=== PATIENT | female | born 1940 | race Caucasian/White ===

== ENCOUNTER 2019-10-11 16:27 | Emergency (ER) | payer MEDICARE ==
[2019-10-11 17:35] LABS: Basophils # (A) 0.1 k/uL (0-0.2); Basophils % (A) 1 %; Eosinophils # (A) 0.1 k/uL (0-0.7); Eosinophils % (A) 1 %; HCT 38.5 % (34.0-46.0); HGB 12.8 gm/dL (11.4-16.0); Lymphocytes # (A) 2.5 k/uL (1.0-4.8); Lymphocytes % (A) 23 %; MCH 29.6 pg (25.0-35.0); MCHC 33.1 g/dL (31.0-37.0); MCV 89.5 fL (80.0-100.0); Mean Platelet Volume 7.9; Monocytes # (A) 0.8 k/uL (0-1.0); Monocytes % (A) 7 %; Neutrophils % (A) 66 %; Platelet Count 245 k/uL (150-450); RBC 4.31 m/uL (3.80-5.40); RDW 13.6 % (11.5-15.5); WBC 10.6 k/uL (3.8-10.6)
[2019-10-11 17:44] LABS: Albumin 4.2 g/dL (3.5-5.0); Calcium 10.3 mg/dL (8.4-10.2); Potassium 4.7 mmol/L (3.5-5.1); Total Bilirubin 0.5 mg/dL (0.2-1.3); Total Protein 7.5 g/dL (6.3-8.2)
--- NOTE | 2019-10-11 17:45 | XR ---
Right ankle HISTORY: Pain and swelling 3 views of the right ankle There is soft tissue swelling present. Bone mineralization, joint spaces and alignment are maintained . There is a plantar calcaneal spur present. IMPRESSION: No fracture or dislocation. Soft tissue swelling present.
--- NOTE | 2019-10-11 18:03 | ED ---
Extremity Problem HPI - General Chief complaint: Extremity Problem,Nontraumatic Stated complaint: foot pain & swelling Time Seen by Provider: 10/11/19 16:53 Source: patient Mode of arrival: wheelchair Limitations: no limitations - History of Present Illness Initial comments: 79-year-old female patient presents to the emergency department today for evalua tion of right ankle pain, swelling, redness. Patient's that she's had symptoms for the last 3 days. States she is now unable to ambulate without extreme pain and difficulty. Denies any injury to the ankle. States she has had similar symptoms in the past. Last episode was in August states this started in the ankle which resolved and moved to her hip which then resolved and then moved to the left shoulder. Patient states she did see her primary care physician was diagnosed with gout and arthritis subsequently. States she did take Tylenol this morning but has not taking anything else for pain. Denies any fever or chills. Patient denies any recent rash, fever, chills, cough, shortness of breath, chest pain, abdominal pain, nausea, vomiting, diarrhea, constipation, back pain, numbness, tingling, dizziness, weakness, hematuria, dysuria, urinary urgency, urinary frequency, headache, visual changes, or any other complaints. - Related Data Previous Rx's Medication Instructions Recorded Acetaminophen-Codeine 300-30mg 1 tab PO Q6H PRN #12 tablet 10/11/19 [Tylenol #3] predniSONE 50 mg PO DAILY #5 tablet 10/11/19 Allergies Allergy/AdvReac Type Severity Reaction Status Date / Time [place] And Derivatives Allergy Rash/Hives Verified 10/11/19 16:36 [[place]] Review of Systems ROS Statement: Those systems with pertinent positive or pertinent negative responses have been documented in the HPI. ROS Other: All systems not noted in ROS Statement are negative. Past Medical History Past Medical History: Diabetes Mellitus, Hyperlipidemia, Hypertension History of Any Multi-Drug Resistant Organisms: None Reported Past Surgical History: Hysterectomy, Orthopedic Surgery Past Psychological History: No Psychological Hx Reported Smoking Status: Never smoker Past Alcohol Use History: None Reported Past Drug Use History: None Reported General Exam Limitations: no limitations General appearance: alert, in no apparent distress, other (This is a well- developed, well-nourished elderly female patient in no acute distress. Vital signs upon presentation are temperature 98.2F, pulse 98, respirations 18, blood pressure 198/76, pulse ox 97% on room air.) Respiratory exam: Present: normal lung sounds bilaterally. Absent: respiratory distress, wheezes, rales, rhonchi, stridor Cardiovascular Exam: Present: regular rate, normal rhythm, normal heart sounds. Absent: systolic murmur, diastolic murmur, rubs, gallop, clicks Extremities exam: Present: full ROM, tenderness (Tenderness of bilateral malleol us.), normal capillary refill, other (There is right ankle swelling, erythema, etc. down into the foot. No swelling to the toes. Pedal and posttibial pulses 2+ and equal bilaterally. Skin is otherwise pink, warm, dry. Cap refills less than 3 seconds.). Absent: normal inspection, pedal edema, joint swelling, calf tenderness Neurological exam: Present: alert, oriented X3, CN II-XII intact Psychiatric exam: Present: normal affect, normal mood Skin exam: Present: warm, dry, intact, normal color. Absent: rash Course Vital Signs 10/11/19 10/11/19 16:30 20:09 Temperature 98.0 F 98.2 F Pulse Rate 98 93 Respiratory 18 17 Rate Blood Pressure 198/76 160/74 O2 Sat by Pulse 97 98 Oximetry Medical Decision Making - Medical Decision Making 79-year-old female patient presents to the emergency department today for evaluation presents with right ankle swelling, pain, and redness. Physical examination does reveal swelling, pain, erythema over the right ankle. Negative Homans sign. No calf tenderness. Labs reviewed and revealed normal white blood cell count. She did have elevated ESR and uric acid. Patient symptoms are consistent with gout. Given her renal function will not be able start NSAI Ds that we can start a course of steroids. She also was given up her prescription for Tylenol codeine. She'll be instructed to follow-up with orthopedics. We did discuss return parameters including development a fever and worsening pain. She verbalizes understanding and agrees with this plan. - Lab Data Result diagrams: 10/11/19 17:23 10/11/19 17:23 Lab Results 10/11/19 10/11/19 10/11/19 Range/Units 17:23 17:23 17:57 WBC 10.6 (3.8-10.6) k/uL RBC 4.31 (3.80-5.40) m/uL Hgb 12.8 (11.4-16.0) gm/dL Hct 38.5 (34.0-46.0) % MCV 89.5 (80.0-100.0) fL MCH 29.6 (25.0-35.0) pg MCHC 33.1 (31.0-37.0) g/dL RDW 13.6 (11.5-15.5) % Plt Count 245 (150-450) k/uL Neutrophils % 66 % Lymphocytes % 23 % Monocytes % 7 % Eosinophils % 1 % Basophils % 1 % Neutrophils # 7.0 (1.3-7.7) k/uL Lymphocytes # 2.5 (1.0-4.8) k/uL Monocytes # 0.8 (0-1.0) k/uL Eosinophils # 0.1 (0-0.7) k/uL Basophils # 0.1 (0-0.2) k/uL ESR 78 H (0-20) mm/hr Sodium 137 (137-145) mmol/L Potassium 4.7 (3.5-5.1) mmol/L Chloride 102 (98-107) mmol/L Carbon Dioxide 23 (22-30) mmol/L Anion Gap 12 mmol/L BUN 24 H (7-17) mg/dL Creatinine 1.09 H (0.52-1.04) mg/dL Est GFR (CKD-EPI)AfAm 56 (>60 ml/min/1.73 sqM) Est GFR (CKD-EPI)NonAf 49 (>60 ml/min/1.73 sqM) Glucose 176 H (74-99) mg/dL Uric Acid 8.0 H (3.7-7.4) mg/dL Calcium 10.3 H (8.4-10.2) mg/dL Total Bilirubin 0.5 (0.2-1.3) mg/dL AST 24 (14-36) U/L ALT 21 (4-34) U/L Alkaline Phosphatase 83 (38-126) U/L Total Protein 7.5 (6.3-8.2) g/dL Albumin 4.2 (3.5-5.0) g/dL Urine Color Yellow Urine Appearance Clear (Clear) Urine pH 5.5 (5.0-8.0) Ur Specific [place] 1.021 (1.001-1.035) Urine Protein Trace H (Negative) Urine Glucose (UA) Negative (Negative) Urine Ketones Negative (Negative) Urine Blood Moderate (Negative) Urine Nitrite Negative (Negative) Urine Bilirubin Negative (Negative) Urine Urobilinogen <2.0 (<2.0) mg/dL Ur Leukocyte Esterase Negative (Negative) Urine WBC 2 (0-5) /hpf Uric Acid Crystals Moderate H (None) /hpf Hyaline Casts 1 (0-2) /lpf - Radiology Data Radiology results: report reviewed, image reviewed 3 views of the right ankle are obtained. Report reviewed in its entirety. Impression by Dr. Milian shows no fracture or dislocation. Soft tissue swelling present. Disposition Clinical Impression: Gout attack Disposition: HOME SELF-CARE Condition: Good Instructions (If sedation given, give patient instructions): Low Purine Diet (ED), Gout (ED) Additional Instructions: Keep foot elevated. Take medication as directed. Follow up with the developmental specialist for further evaluation. Return for any worsening symptoms, but especially fever or worsening pain. Prescriptions: predniSONE 50 mg PO DAILY #5 tablet Acetaminophen-Codeine 300-30mg [Tylenol #3] 1 tab PO Q6H PRN #12 tablet PRN Reason: Pain Is patient prescribed a controlled substance at d/c from ED?: No Referrals: Moose Stallings DO [Doctor of Osteopathic Medicine] - 1-2 days Time of Disposition: 19:28
[2019-10-11 18:22] LABS: Erythrocyte Sedimentation Rate 78 mm/hr (0-20)
[2019-10-11 19:16] LABS: Color,Urine Yellow
[2019-10-11 19:17] LABS: Appearance,Urine Clear (Clear); Specific Gravity,Urine 1.021 (1.001-1.035)
[2019-10-11 19:18] LABS: PH, Urine 5.5 (5.0-8.0)
[2019-10-11] MEDS ORDERED: methylPREDNISolone SOD SUCCI 125 MG/2 ML VIAL IV STA (19:27)
[2019-10-11 19:33] LABS: Bilirubin,Urine Negative (Negative); Blood,Urine Moderate (Negative); Glucose,Urine (UA) Negative (Negative); Ketones,Urine Negative (Negative); Protein,Urine Trace (Negative)
[2019-10-11 19:34] LABS: Leukocyte Esterase,Urine Negative (Negative); Nitrite,Urine Negative (Negative); Urobilinogen,Urine <2.0 mg/dL (<2.0)
[2019-10-11] MEDS ORDERED: ACET/COD 300 MG/30 MG STARTER PACK 6 TAB BTL PO STA (19:35)
[2019-10-11 20:10] VITALS: BP 160/74; PULSE 93; RESP 17; TEMP 98.2
[2019-10-11 20:36] LABS: Uric Acid Crystals,Urine Moderate /hpf; WBC,Urine 2 /hpf (0-5)
[2019-10-11 20:37] LABS: Hyaline Casts,Urine 1 /lpf (0-2)
== END 2019-10-11 20:10 | disposition home or self-care (01) ==
LOC: EC 16:27
DX: M10.071 Idiopathic gout, right ankle and foot (principal); E11.9 Type 2 diabetes mellitus without complications; I10 Essential (primary) hypertension; Z91.018 Allergy to other foods
CPT/HCPCS: 36415; 80053; 85652; 84550; 85025; 81001; 73610; 99283; 96374; J2930